=== PATIENT | female | born 1970 | race Caucasian/White ===

== ENCOUNTER → 2017-03-13 | Outpatient (CLI) | payer OTHER, MEDICARE ==
[~2017-03-13] MED LIST: ALEVE220 MG PO; AUGMENTIN 875 M1 TA1 PO; MOTRIN600 MG PO; PERCOCET 325 MG1 TA2 PO
== END | disposition home or self-care (01) ==
LOC: RAD 17:47
DX: M54.2 Cervicalgia (principal); Z87.81 Personal history of (healed) traumatic fracture